=== PATIENT | male | born 1970 | race Caucasian/White ===

== ENCOUNTER 2024-01-21 21:40 | Emergency (ER) | payer MEDICAID ==
[~2024-01-21] VITALS: Ht 185.4 cm; Wt 119.3 kg
[2024-01-21 21:40] VITALS: BP 115/74; PULSE 82; RESP 16; TEMP 98; O2SAT 98
[2024-01-21 22:41] LABS: BASOPHILS % (AUTO) 0.2 % (0.0-2.0); EOSINOPHILS # (AUTO) 0.2 K/uL (0-0.4); EOSINOPHILS % (AUTO) 3.3 % (0.0-4.0); HEMATOCRIT 37.3 % (36-52); HEMOGLOBIN 12.5 g/dL (12.0-18.0); LYMPHOCYTES # (AUTO) 1.8 K/uL (2.0-11.5); MEAN CORPUSCULAR HEMOGLOBIN 31 pg (27-31); MEAN CORPUSCULAR HGB CONC 34 g/dL (33-37); MEAN CORPUSCULAR VOLUME 93.5 fL (80-94); MONOCYTES # (AUTO) 0.7 K/uL (0.8-1.0); MONOCYTES % (AUTO) 10.4 % (1.7-9.3); NEUTROPHILS # (AUTO) 3.6 K/uL (1.8-7.7); NEUTROPHILS % (AUTO) 57.1 % (42.2-75.2); PLATELET COUNT (AUTO) 127 K/uL (140-450); RED BLOOD CELL COUNT(AUTO) 3.99 MIL/uL (4.20-6.10); RED CELL DISTRIBUTION WIDTH 17.3 % (11.6-13.7); WHITE BLOOD COUNT (AUTO) 6.4 K/uL (4.8-10.8)
[2024-01-21] MEDS: MORPHINE SULFATE 4 MG/ML SYR IVP ONE (23:02)
[2024-01-21] MEDS: ONDANSETRON 4 MG/2 ML VIAL IVP ONE (23:04)
[2024-01-21 23:05] LABS: ALBUMIN 2.8 g/dL (3.4-5.0); BILIRUBIN,DIRECT 0.4 mg/dL (0.0-0.3); TOTAL BILIRUBIN 1.8 mg/dL (0.0-1.0); TOTAL PROTEIN, SERUM 6.7 g/dL (6.4-8.2)
[2024-01-21 23:06] LABS: ANION GAP 15.2 (8-16); CARBON DIOXIDE 20.5 mmol/L (21-32); POTASSIUM 3.7 mmol/L (3.5-5.1)
[2024-01-21 23:07] LABS: CREATININE 1.5 mg/dL (0.6-1.3)
[2024-01-22] MEDS: KETOROLAC 30 MG/ML VIAL IVP ONE (00:17)
[2024-01-22] MEDS: NACL 0.9% 1,000 ML IV ONE (00:17)
[2024-01-22 00:57] LABS: CALCIUM 8.7 mg/dL (8.5-10.1)
[2024-01-22] MEDS ORDERED: ONDA-188 PO (01:16)
[2024-01-22] MEDS ORDERED: BEN10 PO (01:16)
[2024-01-22 01:30] VITALS: BP 99/60; PULSE 75; RESP 16; TEMP 98; O2SAT 98
== END 2024-01-22 01:30 | disposition home or self-care (01) ==
LOC: MED 21:40
DX: R10.84 Generalized abdominal pain (principal); R53.1 Weakness; R07.9 Chest pain, unspecified; Z87.448 Personal history of other diseases of urinary system; Z98.890 Other specified postprocedural states; Z79.899 Other long term (current) drug therapy
CPT/HCPCS: 36415; 74176; 80048; 80076; 83690; 85025; 93005; 96361; 96374; 96375; 99285; J1885; J2270; J2405